=== PATIENT | female | born 1985 | race Caucasian/White ===

== ENCOUNTER 2018-05-28 10:28 | Observation (INO) | payer OTHER ==
[~2018-05-28] VITALS: Ht 159 cm; Wt 94.3 kg
[2018-05-28] MEDS ORDERED: PNV1TABL54 PO (10:33)
[2018-05-28 11:02] VITALS: BP 124/60
[2018-05-28 11:17] LABS: HEMOGLOBIN A1C 6.2 % (4.5-6.2)
[2018-05-28] MEDS ORDERED: GlyBURIDE 5 MG TABLET PO ONE (13:00)
[2018-05-28 14:34] LABS: GLUCOMETER DEV NAME(LOC) 4S 8; GLUCOSE,POINT OF CARE 118 MG/DL (70-110)
[2018-05-28 17:38] LABS: GLUCOMETER DEV NAME(LOC) 4S 8; GLUCOSE,POINT OF CARE 95 MG/DL (70-110)
[2018-05-28 17:38] LABS: GLUCOMETER DEV NAME(LOC) 4S 8; GLUCOSE,POINT OF CARE 62 MG/DL (70-110)
[2018-05-28 22:09] LABS: GLUCOMETER DEV NAME(LOC) 4S 8; GLUCOSE,POINT OF CARE 98 MG/DL (70-110)
[2018-05-28 22:24] LABS: GLUCOMETER DEV NAME(LOC) 4S 8; GLUCOSE,POINT OF CARE 68 MG/DL (70-110)
[2018-05-28 22:53] LABS: GLUCOMETER DEV NAME(LOC) 4S 8; GLUCOSE,POINT OF CARE 96 MG/DL (70-110)
[2018-05-29 01:34] LABS: GLUCOMETER DEV NAME(LOC) 4S 8; GLUCOSE,POINT OF CARE 106 MG/DL (70-110)
[2018-05-29 06:44] LABS: GLUCOMETER DEV NAME(LOC) 4S 8; GLUCOSE,POINT OF CARE 80 MG/DL (70-110)
[2018-05-29 09:14] LABS: GLUCOMETER DEV NAME(LOC) 4S 8; GLUCOSE,POINT OF CARE 126 MG/DL (70-110)
== END 2018-05-29 09:35 | disposition home or self-care (01) ==
LOC: 4S 10:28
PROVIDERS: ADMIT Obstetrics & Gynecology; ATTEND Obstetrics & Gynecology
DX: O26.893 Other specified pregnancy related conditions, third trimester (principal); R42 Dizziness and giddiness; Z3A.38 38 weeks gestation of pregnancy
CPT/HCPCS: 36415; 59025; 82947; 82962 ×2; 83036; G0378 ×2

== ENCOUNTER 2018-05-30 10:30 | Observation (INO) | payer OTHER ==
[~2018-05-30] VITALS: Ht 159 cm; Wt 94.3 kg
[~2018-05-30 10:30] MED LIST: PNV1TABL54 PO
[2018-05-30 11:25] VITALS: BP 111/71
[2018-05-30 13:03] LABS: GLUCOMETER DEV NAME(LOC) 4S 8; GLUCOSE,POINT OF CARE 115 MG/DL (70-110)
[2018-05-30 16:09] LABS: GLUCOMETER DEV NAME(LOC) 4S 8; GLUCOSE,POINT OF CARE 93 MG/DL (70-110)
[2018-05-30 16:09] LABS: GLUCOMETER DEV NAME(LOC) 4S 8; GLUCOSE,POINT OF CARE 118 MG/DL (70-110)
== END 2018-05-30 16:00 | disposition home or self-care (01) ==
LOC: 4S 10:30
PROVIDERS: ADMIT Obstetrics & Gynecology; ATTEND Obstetrics & Gynecology
DX: O24.419 Gestational diabetes mellitus in pregnancy, unspecified control (principal); O26.893 Other specified pregnancy related conditions, third trimester; R10.30 Lower abdominal pain, unspecified; Z3A.38 38 weeks gestation of pregnancy
CPT/HCPCS: 59025; 82962; G0378

== ENCOUNTER 2018-06-07 11:40 | Inpatient (IN) | payer OTHER ==
[~2018-06-07] VITALS: Ht 159 cm; Wt 94.8 kg
[~2018-06-07 11:40] MED LIST changes: +FentaNYL CITRATE-PF 100 MCG/2 ML VIAL IVP ONE
[2018-06-07] MEDS ORDERED: RINGERS SOLUTION,LACTATED 1,000 ML IV ONE (11:59)
[2018-06-07] MEDS ORDERED: METOCLOPRAMIDE HCL 5 MG/ML 2 ML VIAL IVP ONE (12:00)
[2018-06-07] MEDS ORDERED: CITRIC ACID/SODIUM CITRATE 30 ML SOLUTION UDCUP PO ONE (12:00)
[2018-06-07] MEDS ORDERED: EPHEDrine SULFATE 50 MG/ML VIAL IM ONE (12:00)
[2018-06-07] MEDS ORDERED: ONDANSETRON HCL 4 MG/2 ML VIAL IVP ONE (12:00)
[2018-06-07] MEDS ORDERED: 0.9% SODIUM CHLORIDE 10 ML VIAL IVP ONE (12:00)
[2018-06-07] MEDS ORDERED: OXYTOCIN 10 UNITS/ML VIAL IM ONE (12:00)
[2018-06-07 12:28] LABS: BASOPHILS % (AUTO) 0.3 % (0.0-2.0); EOSINOPHILS % (AUTO) 0.9 % (1.0-6.0); HEMATOCRIT 37.1 % (36-46); HEMOGLOBIN 12.6 g/dL (12.0-16.0); LYMPHOCYTES % (AUTO) 14.8 % (22.0-44.0); MEAN CORPUSCULAR HEMOGLOBIN 27.9 pg (26.0-34.0); MEAN CORPUSCULAR HGB CONC 33.9 G/dL (31.0-37.0); MEAN CORPUSCULAR VOLUME 82 fL (80-100); MONOCYTES # (AUTO) 0.8 K/uL (0.1-1.0); MONOCYTES % (AUTO) 6.2 % (2.0-9.0); NEUTROPHILS # (AUTO) 10.3 K/uL (1.8-7.7); NEUTROPHILS % (AUTO) 77.8 % (40.0-70.0); PLATELET COUNT (AUTO)-OB 321 K/uL (150-450); RED BLOOD CELL COUNT(AUTO) 4.51 MIL/uL (4.00-5.20); RED CELL DISTRIBUTION WIDTH 16.2 % (11.5-14.5)
[2018-06-07 12:32] VITALS: BP 116/58
[2018-06-07] MEDS ORDERED: NALBUPHINE HCL 10 MG/ML VIAL IVP PRN (14:45)
[2018-06-07] MEDS ORDERED: DiphenhydrAMINE HCL 50 MG/ML VIAL IVP PRN (14:45)
[2018-06-07] MEDS ORDERED: ONDANSETRON HCL 4 MG/2 ML VIAL IVP PRN (14:45)
[2018-06-07] MEDS ORDERED: NALOXONE HCL 0.4 MG/ML VIAL IVP PRN (14:45)
[2018-06-07] MEDS ORDERED: MEPERIDINE HCL/PF 25 MG/0.5 ML AMP IVP PRN (14:45)
[2018-06-07] MEDS ORDERED: HYDROmorphone 2 MG/ML SYRINGE IVP PRN (14:45)
[2018-06-07] MEDS ORDERED: FentaNYL CITRATE-PF 100 MCG/2 ML VIAL IVP PRN ×2 (14:45)
[2018-06-07] MEDS ORDERED: MORPHINE SULFATE/PF 0.5 MG/ML 10 ML AMP ONE (15:07)
[2018-06-07] MEDS ORDERED: ACETAMINOPHEN 1000 MG/ISO-OSM 100 ML IV ONE (16:11)
[2018-06-07] MEDS ORDERED: METHYLERGONOVINE MALEATE 0.2 MG/ML VIAL ONE (16:17)
[2018-06-07] MEDS ORDERED: ACETAMINOPHEN/CODEINE 300-30 MG TABLET PO PRN ×2 (17:00)
[2018-06-07] MEDS ORDERED: LANOLIN 7 GM OINTMENT TP PRN (17:00)
[2018-06-07] MEDS: DEXTROSE 5%-0.45% SODIUM CHL 1,000 ML IV SCH (19:44)
[2018-06-07] MEDS: MAGNESIUM HYDROXIDE SUSPENSION 30 ML UDCUP PO SCH (21:00)
[2018-06-07] MEDS: ACETAMINOPHEN 1000 MG/ISO-OSM 100 ML IV SCH (22:28)
[2018-06-08] MEDS: IBUPROFEN 800 MG TABLET PO SCH ×3 (00:11→16:04)
[2018-06-08] MEDS: DEXTROSE 5%-0.45% SODIUM CHL 1,000 ML IV SCH ×3 (00:18→10:05)
[2018-06-08] MEDS ORDERED: DEXTROSE 5%-0.45% SODIUM CHL 1,000 ML IV ONE (03:43)
[2018-06-08] MEDS: ACETAMINOPHEN 1000 MG/ISO-OSM 100 ML IV SCH (04:00)
[2018-06-08] MEDS: MAGNESIUM HYDROXIDE SUSPENSION 30 ML UDCUP PO SCH (20:32)
[2018-06-09] MEDS: IBUPROFEN 800 MG TABLET PO SCH ×5 (00:12→23:33)
[2018-06-09] MEDS: MAGNESIUM HYDROXIDE SUSPENSION 30 ML UDCUP PO SCH ×2 (09:00→21:00)
[2018-06-10] MEDS: IBUPROFEN 800 MG TABLET PO SCH (05:48)
[2018-06-10] MEDS: MAGNESIUM HYDROXIDE SUSPENSION 30 ML UDCUP PO SCH (09:00)
[2018-06-10] MEDS ORDERED: IBUP-2071 PO (10:22)
== END 2018-06-10 11:15 | disposition home or self-care (01) | DRG 766 ==
LOC: 4S 11:40 → OBSVTOIN 11:40
PROVIDERS: ADMIT Obstetrics & Gynecology; ATTEND Obstetrics & Gynecology
PROC: 10D00Z1 Extraction of Products of Conception, Low, Open Approach (ICD-10-PCS; principal; 2018-06-07)
DX: O34.211 Maternal care for low transverse scar from previous cesarean delivery (principal); Z37.0 Single live birth; Z3A.39 39 weeks gestation of pregnancy
CPT/HCPCS: 86850; 86900; 86901; 87081; J0131; J0690; J2210; J2274; J2405; J2590; J2765; J3010; J3490; J7120